=== PATIENT | male | born 1945 | race Caucasian/White ===

== ENCOUNTER 2017-08-06 09:24 | Day surgery (SDC) | payer MEDICARE, MEDICAID ==
[~2017-08-06] VITALS: Ht 160 cm; Wt 61.2 kg
[~2017-08-06 09:24] MED LIST: ASPI-1073 PO; DIAZ10TA4 PO; FISH PO; LISI10TA5 PO; TAMS0.4C31 PO; TICA90TA PO
[2017-08-06] MEDS ORDERED: SIMETHICONE 40 MG/0.6 ML 30ML ONE (10:24)
[2017-08-06] MEDS ORDERED: LIDOCAINE HCL/PF 1% 10 MG/ML 30ML VIAL ONE (12:32)
[2017-08-06] MEDS ORDERED: MIDAZOLAM HCL 5 MG/5 ML VIAL ONE (12:32)
[2017-08-06] MEDS ORDERED: PROPOFOL 200MG/20ML VIAL IV ONE ×3 (12:32→12:57)
[2017-08-06] MEDS ORDERED: SUCCINYLCHOLINE CHLORIDE 200MG/10ML VIAL IV ONE (12:35)
[2017-08-06] MEDS ORDERED: AMIT-187 PO (14:28)
[2017-08-06] MEDS ORDERED: ATOR-2 PO (14:28)
[2017-08-06] MEDS ORDERED: CARV6.2548 PO (14:28)
[2017-08-06] MEDS ORDERED: AMIT25TA9 PO (14:28)
== END 2017-08-06 16:15 | disposition home or self-care (01) ==
LOC: OR 09:24
PROVIDERS: ATTEND Internal Medicine Gastroenterology
DX: K52.9 Noninfective gastroenteritis and colitis, unspecified (principal); K29.50 Unspecified chronic gastritis without bleeding; K29.80 Duodenitis without bleeding; K57.30 Diverticulosis of large intestine without perforation or abscess without bleeding; K21.9 Gastro-esophageal reflux disease without esophagitis; I10 Essential (primary) hypertension; D64.9 Anemia, unspecified; I25.10 Atherosclerotic heart disease of native coronary artery without angina pectoris; E78.5 Hyperlipidemia, unspecified; I25.2 Old myocardial infarction; Z79.82 Long term (current) use of aspirin; Z79.899 Other long term (current) drug therapy; G80.9 Cerebral palsy, unspecified; Z95.5 Presence of coronary angioplasty implant and graft; Z98.890 Other specified postprocedural states
CPT/HCPCS: 43239; 45380; 88305; 88312; 88313; J0330; J2250; J3490; J7120; J2704